=== PATIENT | female | born 1955 | race Caucasian/White ===

== ENCOUNTER → 2017-06-24 | Outpatient (CLI) | payer MEDICARE, BC ==
--- NOTE | 2017-06-24 15:17 | CT ---
EXAMINATION TYPE: CT urogram wo/w con DATE OF EXAM: 06/24/2017 HISTORY: Gross hematuria CT DLP: 1685mGycm Automated Exposure Control for Dose Reduction was Utilized. CONTRAST: CT scan of the abdomen and pelvis is performed with IV Contrast, patient injected with 80 mL of Isovu e 300. COMPARISON: None. FINDINGS: LUNG BASES: Subsegmental changes compatible atelectasis at the lung bases.. LIVER/GB: Subcentimeter hypodensity within the left lobe of the liver too small to characterize but l ikely related to a cyst.. PANCREAS: Marked atrophy of the pancreas correlate clinically. SPLEEN: Findings suggest previous splenectomy. Tiny splenule is noted in the splenic fossa. ADRENALS: No significant abnormality is seen. KIDNEYS: No hydronephrosis. There is a punctate 1 mm calcification lower pole left kidney best noted on sagittal image #109 sequence 5.. No suspicious appearing renal mass. There is a 7 mm hypodensity w ithin the inferior pole of the right kidney too small to characterize or obtain accurate [place] m easurement. Bladder distends normally with no filling defect. Ureters are segmentally seen to be of normal course and caliber with no definite filling defect as visualized. BOWEL: Bowel gas pattern is nonspecific and there is extensive retained fecal debris. A few prominent small bowel loops in the lower pelvis are incidentally noted.. LYMPH NODES: No greater than 1cm abdominal or pelvic lymph nodes are appreciated. OSSEOUS STRUCTURES: No significant abnormality is seen. OTHER: Trace amount of fluid within the pelvis noted. Calcification left hemipelvis appears vascular. Retroaortic left renal vein incidentally noted IMPRESSION: 1. Punctate lower pole nonobstructing 1 mm left renal calculus. 2. Hypodense lower pole right renal lesion too small to accurate characterize but likely related to s imple cyst. 3. There are few prominent small bowel loops in the lower pelvis which may be related to localized il eus or enteritis correlate clinically. Appendix not seen with certainty. 4. Trace amount of free fluid in the pelvis. 5. Findings are suggestive of pelvic varices.
== END | disposition home or self-care (01) ==
LOC: RADCTMAIN 13:31
PROVIDERS: ATTEND Urology
DX: N20.0 Calculus of kidney (principal); N28.89 Other specified disorders of kidney and ureter
CPT/HCPCS: 74178; 74400; Q9967

== ENCOUNTER → 2019-08-21 | Outpatient (CLI) | payer MEDICARE, OTHER ==
--- NOTE | 2019-08-21 13:44 | US ---
EXAMINATION TYPE: US kidneys/renal and bladder DATE OF EXAM: 08/21/2019 COMPARISON: Correlation CT 06/24/2017 CLINICAL HISTORY: 64-year-old female R31.9 HEMATURIA. Macroscopic hematuria x 2 weeks. Patient state s having a hx of renal stones TECHNIQUE: Multiple sonographic images of the kidneys and bladder are obtained. FINDINGS: EXAM MEASUREMENTS: Right Kidney: 10.4 x 4.8 x 4.0 cm Left Kidney: 10.7 x 3.9 x 5.7 cm Right Kidney: No hydronephrosis. Lower pole cystic appearing lesion visualized = 0.5 x 0.5 x 0.5 cm Left Kidney: No hydronephrosis. Bladder: anechoic, distended Bilateral Jets seen IMPRESSION: Benign 5 mm right lower pole renal cortical cyst. No hydronephrosis on either side.
== END | disposition home or self-care (01) ==
LOC: RADUSWWP 12:03
PROVIDERS: ATTEND Family Medicine
DX: N28.1 Cyst of kidney, acquired (principal); R31.9 Hematuria, unspecified
CPT/HCPCS: 76770

== ENCOUNTER → 2020-01-23 | Outpatient (CLI) | payer MEDICARE, OTHER ==
--- NOTE | 2020-01-23 09:46 | US ---
EXAMINATION TYPE: US kidneys/renal and bladder DATE OF EXAM: 01/23/2020 COMPARISON: US 08/21/19 CLINICAL HISTORY: N28.1 RENAL CYST,R31.9 HEMATURIA. EXAM MEASUREMENTS: Right Kidney: 10.7 x 4.9 x 4.0 cm Left Kidney: 10.2 x 4.7 x 4.3 cm Right Kidney: No hydronephrosis or masses seen, inferior pole cyst =0.7 x 0.7 x 0.6 cm Left Kidney: No hydronephrosis or masses seen Bladder: Not overly distended. wnl Bilateral Jets seen: Yes Normal Post Void Residual: Not calculated. Patient didn't feel need to void. There is no evidence for hydronephrosis at this point in time. No nephrolithiasis is seen. The urin apple bladder is anechoic. Bilateral ureteral jets are seen. Suboptimal visualization overall due to large amounts of bowel gas. IMPRESSION: 1. There is a subcentimeter right renal lesion too small to characterize but statistically most likel y related to a cyst. Also noted on the prior exam and appears to be stable given differences in techn ique.
== END | disposition home or self-care (01) ==
LOC: RADUSWWP 08:58
PROVIDERS: ATTEND Family Medicine
DX: N28.89 Other specified disorders of kidney and ureter (principal); Z88.8 Allergy status to other drugs, medicaments and biological substances
CPT/HCPCS: 76770